=== PATIENT | male | born 1965 | race Caucasian/White ===

== ENCOUNTER 2021-08-12 23:41 | Emergency (ER) | payer SELFPAY ==
[2021-08-12 23:42] VITALS: BP 167/92; PULSE 62; RESP 18; TEMP 36.9; O2SAT 97; BMI 27.3
--- NOTE | 2021-08-13 00:37 | [facility].EDDENT ---
ED Disposition Clinical Impression: Dental caries, Infected dental caries, Pain, dental Disposition: Home, Self-Care Condition on Discharge: Good Instructions: DI for Dental Pain Additional Instructions: use meds and see dentist and pcp Prescriptions: cephALEXin [cephALEXin 500mg capsule*] 500 mg PO TID #30 cap Transmission Status: Pending to [facility] #[id number] Referrals: Provider,Referral, [Primary Care Provider] - - Critical Care Critical Care Time: No Attestation: On 08/12/21, the high probability of a clinically significant, sudden or life threatening deterioration of the following system(s) required my full and direct attention, intervention and personal management. The time I documented below is in addition to time spent performing reported procedures but includes the following listed in this critical care notation. Medical Decision Making - Medical Records Medical records reviewed: Yes: I reviewed the patient's medical records. - Kenneth Inquiry Pt receiving controlled substance: No Vital Signs: 08/12/21 23:42 Temperature 98.5 F Temperature Source Oral Pulse Rate [Right] 62 Respiratory Rate 18 Blood Pressure [Right Arm] 167/92 H Blood Pressure Mean [Right Arm] 117 02 Sat by Pulse Oximetry 97 Oxygen Delivery Method Room Air - Lab Data Lab results reviewed: Yes: I reviewed the patient's lab results. Medical Decision Narrative: has sig dental disease and infection will need abx and dental care Dental HPI - General Chief complaint: Dental/Oral Stated complaint: toothache Time Seen by Provider: 08/13/21 00:00 Mode of Arrival: Ambulatory Source of Information: Patient, Medical Record Limitations: No Limitations Description of Symptoms (Recalled from ER Triage Doc. by RN): pt has swelling in the right side of his face states that he has a few bad teeth. usually he can stop the pain with otc meds but this time its not stopping. - History of Present Illness HPI Narrative: dental caries and pain with rt max sinus pain Complaint: tooth pain Onset (ago): day(s) Severity: moderate Context: history of dental caries, poor dental care Associated symptoms: gum swelling Treatment prior to arrival: topical analgesic - Related Data Previous Rx's Medication Instructions Recorded cephALEXin [cephALEXin 500mg 500 mg PO TID #30 cap 08/13/21 capsule*] Allergies Allergy/AdvReac Type Severity Reaction Status Date / Time No Known Allergies Allergy Verified 11/30/20 12:14 [facility] History - Hepatitis A Screen Drug use history?: No High risk sexual behaviors?: No History of sexually transmitted infection?: No Currently employed?: No Childcare worker?: No Do you have indoor plumbing?: Yes Do you have electricity?: Yes Attestation statement:: This patient has been screened for Hepatitis A risk factors. I have reviewed the patient's past medical history: Yes Other Surgeries: Yes: No Previous Surgery Fractures: Yes (right arm as a teen) - Social History Smoking Status: Former smoker Alcohol Intake: never Alcohol Intake Frequency:: a few times a month Substance Use Type: denies use Occupational Status: employed Family Hx:: No significant family history ROS Obtained: Yes All systems reviewed & no additional complaints - Constitutional Constitutional: Denies fever(s) - Eyes Eyes: Denies change in vision - ENT Ears, Nose, Mouth, and Throat: Reports as per HPI, Reports dental pain, Reports facial pain, Denies sore throat - Cardiovascular Cardiovascular: Denies chest pain - Respiratory Respiratory: Denies cough - Gastrointestinal Gastrointestingal: Denies: abdominal pain - Genitourinary Male Genitourinary: Denies hematuria - Musculoskeletal Musculoskeletal: Denies joint pain, Denies joint swelling - Integumentary/Breasts Skin/Breast: Denies rash - Neurologic Neurologic: Denies seizure-like activity Physical Exam - General General ap
[2021-08-13 01:08] VITALS: BP 211/88; PULSE 72; RESP 16; TEMP 36.8; O2SAT 98
== END 2021-08-13 01:10 | disposition home or self-care (01) ==
PROVIDERS: Emergency Provider Emergency Medicine
DX: K02.9 Dental caries, unspecified (principal); Z87.891 Personal history of nicotine dependence
CPT/HCPCS: 99281

== ENCOUNTER 2025-08-02 16:20 | Emergency (ER) | payer SELFPAY ==
[2025-08-02] VITALS (8 sets, daily range): BP systolic 137–182; BP diastolic 90–103; PULSE 72–84; RESP 17–18; TEMP 36.7–37; O2SAT 95–97; BMI 33.4
--- NOTE | 2025-08-02 17:00 | ECG_ITS ---
APPROVED REPORT Exam: Resting ECG HR:70 bpm ECG Measurements Heart Rate 70 AXES AR 140 P 59 QRSd 86 QRS 62 QT 380 T 60 QTc 400 Conclusion SINUS RHYTHM NORMAL ECG Electronically signed by : BALAJI NEWMAN, 08/05/2025 14:13:07
--- NOTE | 2025-08-02 17:01 | ED_ITS ---
Discharge Plan Disposition Patient Disposition: Xfer Other Prescriptions Prescriptions: No Action cephalexin 500 MG capsule 500 mg PO TID Qty: 30 0RF Referrals Follow up/Referrals: Provider,Referral, MD [Primary Care Provider, Medical] - See instructions Clinical Impressions Clinical Impression: Abdominal pain, Abdominal mass, Serum total bilirubin elevated Instructions Patient Instructions: DI for Acute Abdominal Pain Print Language Print Language: Citizen Of [place] Discharge ED Provider: Ramon Mcclain General Adult HPI <TRICIA Caballero - Last Filed: 08/02/25 19:21> General Chief complaint: Abdominal Pain Stated complaint: Pain in Abd. that runs to chest & back Time Seen by Provider: 08/02/25 17:00 Mode of Arrival: Ambulatory Source of Information: Patient Limitations: No Limitations History of Present Illness HPI narrative: 60-year-old male presents to the emergency department accompanied by his significant other for lower abdominal pain no rating to his back at times, he also endorses occasional what sounds like belching at times, as well as abdominal distention, with occasional chest pain especially when lying down , that been waxing and waning episodes for the last month. Patient denies any fever chills cough congestion shortness of breath, no chest pain currently, no nausea no vomiting, does admit to episodes of constipation, last bowel movement was this morning, describes it is diarrhea , denies any urinary type symptomatology, denies any hematochezia hematemesis or hemoptysis, patient has no other real relevant past medical history takes no other medications daily at home, patient is a former smoker denies any alcohol or drug use initial triage vitals are unremarkable. Also of note, patient has data deficient/family history of what sounds like gastric cancer being his mother, and possible pancreatic cancer being on his aunt/grandmother side. Please note that above description of symptoms, in this electronic medical record under categorization of recalled from ER triage doctor by RN are reflective of an initial nursing assessment, however, is not reflective of my full history and physical exam that was personally taken and clarified. Consequentially, this preceding description of symptoms, which may include the patient's categorized chief complaint in the EMR, do not reflect my personal clinical impression, and the ultimate description of history of present illness and patient stated complaints should be deferred to this section of the note. Unless stated otherwise or congruent with this section of the note, additional signs, symptoms, or incongruence should be interpreted as inaccurate with my clinical impression. Onset (ago): month(s) Related Data Previous Rx's ?Medication ?Instructions ?Recorded cephalexin 500 mg capsule 500 mg PO TID #30 caps 08/13 Allergies Allergy/AdvReac Type Severity Reaction Status Date / Time No Known Allergies Allergy Verified 11/30/20 12:14 [facility] <TRICIA Caballero - Last Filed: 08/02/25 19:21> [facility] Disclaimer: The information contained in this section may have been updated after the patient was seen, as this information can be updated by other users. Social History Smoking Status: Never smoker alcohol intake: never substance use type: denies use current occupational status: employed Travel in the last 8 weeks?: Inside the [place] Have you lived/traveled outside US in past 30 days?: No Contact w/someone who lives/traveled outside US past 30 days?: No Exposure to someone with infectious disease in past 14 days?: No Do you have a fever (greater than 100.4 F or 38 C)?: No Have you tested positive for COVID-19?: No Exposed to someone with COVID-19 in past 14 days?: No Do you have a sore throat?: No Do you have a cough?: No Do you have any weakness?: No Do you have any diarrhea?: No Are you experiencing any unusual bleeding?: No Do you have any muscle aches/pain?: No Do you have any abdominal pain?: No Are you experiencing loss of taste or smell?: No Other Medical History Have you received the Flu Vaccine for this season: No Have you received the Pneumonia Vaccine: No <TRICIA Caballero - Last Filed: 08/02/25 19:21> ROS Obtained: Yes All systems reviewed & no additional complaints except as documented Physical Exam <TRICIA Caballero - Last Filed: 08/02/25 19:21> General General appearance: alert and in no apparent distress Head Head exam: atraumatic and normocephalic Eye Eye exam: Present PERRL and EOMI; Absent scleral icterus ENT ENT exam: Present mucous membranes moist Neck Neck exam: Present normal inspection Chest Chest inspection: Present normal inspection and symmetric chest wall rise Respiratory Respiratory exam: Present normal lung sounds bilaterally; Absent respiratory distress, wheezes or stridor Cardiovascular Cardiovascular exam: Present regular rate and normal rhythm Abdominal Exam Abdominal exam: Present soft, distention, tenderness and hernia; Absent guarding, rebound, Billings's sign or tenderness at McBurney's Point Abdominal tenderness: Present LLQ Comment: Minimal abdominal tenderness to the LLQ,/midepigastric region, there is some abdominal distention, obvious umbilical hernia that is reducible Extremities Exam Extremities exam: Present normal inspection Back Exam Back exam: Absent CVA tenderness (R) or CVA tenderness (L) Neurological Exam Neurological exam: Present alert and oriented X3 Psychiatric Psychiatric exam: Present normal affect Skin Skin exam: Present warm, dry and other (Some yellowing of the skin throughout, no true jaundice at this time) Medical Decision Making <TRICIA Caballero - Last Filed: 08/02/25 19:21> Medical Records Medical records reviewed: Yes I reviewed the patient's medical records. Screening: Per USPSTF and CDC recommendations, given the prevalence of disease in our region, it is our hospital?s policy to screen for HIV and viral Hepatitis for all patients aged 18 and over and those with ongoing risk factors. Kenneth Inquiry Pt receiving controlled substance: Yes Kenneth was queried for this patient: No Reason not queried -: Emergent pt cond-no time Risks and benefits of using a controlled substance: were discussed with pt by me Vital Signs: 08/02/25 16:21 08/02/25 17:30 08/02/25 19:18 Temperature 98.1 F Temperature Source Oral Pulse Rate 75 75 Pulse Rate [Left Radial] 72 Respiratory Rate 17 18 Blood Pressure 148/90 H 171/97 H Blood Pressure [Right Arm] 158/99 H Blood Pressure Mean [Right Arm] 118 Blood Pressure Source [Right Arm] Automatic Cuff Blood Pressure Position [Right Arm] Sitting 02 Sat by Pulse Oximetry 97 95 97 Oxygen Delivery Method Room Air Room Air Room Air Lab Data Lab results reviewed: Yes I reviewed the patient's lab results. Lab Results 08/02/25 17:10: WBC 10.6, RBC 5.50, Hgb 17.3, Hct 49.7, MCV 90.4, MCH 31.5 H, MCHC 34.8, RDW 12.7, Plt Count 230, MPV 10.7 H, Neut % (Auto) 57.7, Lymph % (Auto) 30.7, [place] % (Auto) 9.5 H, Eos % (Auto) 1.0, Baso % (Auto) 0.8, Neut # (Auto) 6.1, Lymph # (Auto) 3.3, [place] # (Auto) 1.0, Eos # (Auto) 0.1, Baso # (Auto) 0.1, PT 11.9, INR 1.08, Sodium 137, Potassium 4.7, Chloride 101, Carbon Dioxide 27, Anion Gap 13.7, BUN 11, Creatinine 1.10, Estimated GFR 68, Est GFR ( Amer) 82, Glucose 106 H, Lactate 1.1, Calcium 9.3, Magnesium 2.1, Total Bilirubin 6.9 H, AST 253 H, ALT 208 H, Alkaline Phosphatase 128 H, Troponin I < 0.01, NT-Pro-B Natriuret Pep < 20.0, Total Protein 7.8, Albumin 3.8, Globulin 4.0 H, Albumin/Globulin Ratio 1.0 L, Lipase 101, HCV Ab JEAN w/Rflx PCR Qn Negative, HIV Ag/Ab Combo Qual Negative 08/02/25 18:58: Urine Color Yellow, Urine Appearance Clear, Urine pH 5.5, Ur Specific [place] 1.010, Urine Protein Negative, Urine Glucose (UA) Negative, Urine Ketones Negative, Urine Blood Trace-i, Urine Nitrate Negative, Urine Bilirubin 3+ A, Urine Urobilinogen 1.0, Ur Leukocyte Esterase Negative, Urine RBC 5-10, Urine WBC 10-20, Ur Squamous Epith Cells 10-20, Urine Bacteria 1+ 08/02/25 17:10 08/02/25 17:10 Orders (Tests/Meds): ED MEDICATIONS Generic Name Dose Route Start Last Admin Trade Name Freq PRN Reason Stop Dose Admin Sodium Chloride 10 ml 08/02/25 17:57 08/02/25 17:58 Sodium Chloride 0.9% 10ml Syr (Rad Only) IV 09/01/25 17:56 10 ml NEEDED PRN Administration Maintain IV Site Discontinued Medications Generic Name Dose Route Start Last Admin Trade Name Freq PRN Reason Stop Dose Admin Belladonna Alkaloids 60 ml 08/02/25 17:07 08/02/25 17:18 Belladonna Alkaloids 60 Ml Ml PO 08/02/25 17:08 60 ml ONCE ONE Administration Iopamidol 75 ml 08/02/25 17:57 08/02/25 17:58 Iopamidol-370 (76%);100ml Bottle IV 08/02/25 17:58 75 ml ONCE ONE Administration Morphine Sulfate 2 mg 08/02/25 17:07 08/02/25 17:18 Morphine 2mg/Ml Syringe IV 08/02/25 17:08 2 mg ONCE ONE Administration Ondansetron HCl 4 mg 08/02/25 17:07 08/02/25 17:18 Ondansetron 4mg/2ml Vial IV 08/02/25 17:08 4 mg ONCE ONE Administration ORDERS Category Date Time Status CT abdomen pelvis w con Stat Cat Scan 08/02/25 17:[address] chest wo con Stat Cat Scan 08/02/25 18:24 Completed Complete Blood Count Auto Diff Stat Lab 08/02/25 17:10 Completed Comprehensive Metabolic Panel Stat Lab 08/02/25 17:10 Completed HIV Combo Stat Lab 08/02/25 17:10 Completed Hepatitis C Ab Qual. W/ RFX Stat Lab 08/02/25 17:10 Completed Lactic Acid Stat Lab 08/02/25 17:10 Completed Lipase Stat Lab 08/02/25 17:10 Completed Magnesium Stat Lab 08/02/25 17:10 Completed NT Pro Brain Natriuretic Pep. Stat Lab 08/02/25 17:10 Completed PT INR [Prothrombin Time INR] Stat Lab 08/02/25 17:10 Completed Troponin I Q3H Lab 08/02/25 20:15 Ordered Troponin I Q3H Lab 08/02/25 23:15 Ordered Troponin I Stat Lab 08/02/25 17:10 Completed Urinalysis and Microscopic Stat Lab 08/02/25 18:58 Completed Urine Culture Stat Micro 08/02/25 18:58 Received Medical Decision Narrative: 60-year-old male presents emergency department with abdominal pain nausea and occasional chest pain that wax and wane for 1 month, differential diagnose include but not limited to, cholelithiasis, cholecystitis, hernia, bowel obstruction, volvulus, malignancy, diverticulitis, pancreatitis, constipation, gastroenteritis, pneumonia, costochondritis, panic attack, gastritis, GERD, among others. Will obtain basic laboratory studies, EKG, lactic acid, lipase level magnesium level proBNP PT/INR, troponin, urinalysis, CT ab pelvis with contrast, will be obtained for further evaluation/characterization, will give GI cocktail, 2 mg IV morphine and 4 mg IV Zofran for pain and nausea. CMP is notable for no lactic acidosis, transaminitis with an AST of 253 and an ALT of 208, unsure of chronicity, lipase within normal limits. CBC unremarkable PT/INR within normal limit Total bilirubin is elevated at 6.9 Initial troponin is less than 0.01 proBNP is less than 20 I reviewed the patient's CT head and pelvis with contrast along the corresponding radiologic report, also had interactive discussion with Dr. Arteaga at approximately 6:24 PM, extensive portal. Pancreatic and retroperitoneal lymphadenopathy with lymph nodes distort the pancreatic head but no definitive pancreatic mass identified there is focal thickening of the fundus of the gallbladder which is masslike could represent a gallbladder neoplasm, multiple hypodensities are seen scattered throughout the liver the largest seen inferiorly in the right lobe measuring 2.1 cm these are worrisome for metastatic disease consider MRI or PET/CT for further characterization. Also noted a 6 mm pulmonary nodule seen in right lower lobe, and a 3 mm nodule seen in the left lung base, consider CT chest without contrast for further evaluation remainder the lungs. I discussed the results with the patient and family at bedside, I recommended transfer/evaluation by [facility], will call [facility] for potential transfer/evaluation of the patient's masslike structures in his abdomen. I reviewed the patient's CT chest without contrast along the corresponding radiologic report, multiple pulmonary injuries measuring up to 5 mm and possible metastatic disease, left lower lobe granuloma and small mediastinal calcified lymph node consistent with prior granulomatous disease. I discussed this patient's case with transfer physician at approximately 7:14 PM, unfortunately [facility] is on diversion right now, patient will be placed on a wait list for gallbladder versus pancreatic head neoplasm with biliary obstruction. I discussed this patient case with attending physician at shift change, he will be assuming amended the patient's care/workup, disposition is pending bed availability at [facility] for transfer. However, will also reach out to [facility] for potential transfer/to assess bed availability. <Ramon Mcclain MD - Last Filed: 08/02/25 19:40> Vital Signs: 08/02/25 16:21 08/02/25 17:30 08/02/25 19:18 Temperature 98.1 F Temperature Source Oral Pulse Rate 75 75 Pulse Rate [Left Radial] 72 Respiratory Rate 17 18 Blood Pressure 148/90 H 171/97 H Blood Pressure [Right Arm] 158/99 H Blood Pressure Mean [Right Arm] 118 Blood Pressure Source [Right Arm] Automatic Cuff Blood Pressure Position [Right Arm] Sitting 02 Sat by Pulse Oximetry 97 95 97 Oxygen Delivery Method Room Air Room Air Room Air Lab Data Lab Results 08/02/25 17:10: WBC 10.6, RBC 5.50, Hgb 17.3, Hct 49.7, MCV 90.4, MCH 31.5 H, MCHC 34.8, RDW 12.7, Plt Count 230, MPV 10.7 H, Neut % (Auto) 57.7, Lymph % (Auto) 30.7, [place] % (Auto) 9.5 H, Eos % (Auto) 1.0, Baso % (Auto) 0.8, Neut # (Auto) 6.1, Lymph # (Auto) 3.3, [place] # (Auto) 1.0, Eos # (Auto) 0.1, Baso # (Auto) 0.1, PT 11.9, INR 1.08, Sodium 137, Potassium 4.7, Chloride 101, Carbon Dioxide 27, Anion Gap 13.7, BUN 11, Creatinine 1.10, Estimated GFR 68, Est GFR ( Amer) 82, Glucose 106 H, Lactate 1.1, Calcium 9.3, Magnesium 2.1, Total Bilirubin 6.9 H, AST 253 H, ALT 208 H, Alkaline Phosphatase 128 H, Troponin I < 0.01, NT-Pro-B Natriuret Pep < 20.0, Total Protein 7.8, Albumin 3.8, Globulin 4.0 H, Albumin/Globulin Ratio 1.0 L, Lipase 101, HCV Ab JEAN w/Rflx PCR Qn Negative, HIV Ag/Ab Combo Qual Negative 08/02/25 18:58: Urine Color Yellow, Urine Appearance Clear, Urine pH 5.5, Ur Specific [place] 1.010, Urine Protein Negative, Urine Glucose (UA) Negative, Urine Ketones Negative, Urine Blood Trace-i, Urine Nitrate Negative, Urine Bilirubin 3+ A, Urine Urobilinogen 1.0, Ur Leukocyte Esterase Negative, Urine RBC 5-10, Urine WBC 10-20, Ur Squamous Epith Cells 10-20, Urine Bacteria 1+ Orders (Tests/Meds): ED MEDICATIONS Generic Name Dose Route Start Last Admin Trade Name Freq PRN Reason Stop Dose Admin Sodium Chloride 10 ml 08/02/25 17:57 08/02/25 17:58 Sodium Chloride 0.9% 10ml Syr (Rad Only) IV 09/01/25 17:56 10 ml NEEDED PRN Administration Maintain IV Site Discontinued Medications Generic Name Dose Route Start Last Admin Trade Name Freq PRN Reason Stop Dose Admin Belladonna Alkaloids 60 ml 08/02/25 17:07 08/02/25 17:18 Belladonna Alkaloids 60 Ml Ml PO 08/02/25 17:08 60 ml ONCE ONE Administration Iopamidol 75 ml 08/02/25 17:57 08/02/25 17:58 Iopamidol-370 (76%);100ml Bottle IV 08/02/25 17:58 75 ml ONCE ONE Administration Morphine Sulfate 2 mg 08/02/25 17:07 08/02/25 17:18 Morphine 2mg/Ml Syringe IV 08/02/25 17:08 2 mg ONCE ONE Administration Ondansetron HCl 4 mg 08/02/25 17:07 08/02/25 17:18 Ondansetron 4mg/2ml Vial IV 08/02/25 17:08 4 mg ONCE ONE Administration ORDERS Category Date Time Status CT abdomen pelvis w con Stat Cat Scan 08/02/25 17:[address] chest wo con Stat Cat Scan 08/02/25 18:24 Completed Complete Blood Count Auto Diff Stat Lab 08/02/25 17:10 Completed Comprehensive Metabolic Panel Stat Lab 08/02/25 17:10 Completed HIV Combo Stat Lab 08/02/25 17:10 Completed Hepatitis C Ab Qual. W/ RFX Stat Lab 08/02/25 17:10 Completed Lactic Acid Stat Lab 08/02/25 17:10 Completed Lipase Stat Lab 08/02/25 17:10 Completed Magnesium Stat Lab 08/02/25 17:10 Completed NT Pro Brain Natriuretic Pep. Stat Lab 08/02/25 17:10 Completed PT INR [Prothrombin Time INR] Stat Lab 08/02/25 17:10 Completed Troponin I Q3H Lab 08/02/25 20:15 Ordered Troponin I Q3H Lab 08/02/25 23:15 Ordered Troponin I Stat Lab 08/02/25 17:10 Completed Urinalysis and Microscopic Stat Lab 08/02/25 18:58 Completed Urine Culture Stat Micro 08/02/25 18:58 Received ECG Data Tracing #1: I reviewed this ECG and interpreted as documented below: Normal sinus rhythm. No ST elevation or depression. QTc normal at 400 Medical Decision Narrative: 60-year-old male presents emergency department with abdominal pain nausea and occasional chest pain that wax and wane for 1 month, differential diagnose include but not limited to, cholelithiasis, cholecystitis, hernia, bowel obstruction, volvulus, malignancy, diverticulitis, pancreatitis, constipation, gastroenteritis, pneumonia, costochondritis, panic attack, gastritis, GERD, among others. Will obtain basic laboratory studies, EKG, lactic acid, lipase level magnesium level proBNP PT/INR, troponin, urinalysis, CT ab pelvis with contrast, will be obtained for further evaluation/characterization, will give GI cocktail, 2 mg IV morphine and 4 mg IV Zofran for pain and nausea. CMP is notable for no lactic acidosis, transaminitis with an AST of 253 and an ALT of 208, unsure of chronicity, lipase within normal limits. CBC unremarkable PT/INR within normal limit Total bilirubin is elevated at 6.9 Initial troponin is less than 0.01 proBNP is less than 20 I reviewed the patient's CT head and pelvis with contrast along the corresponding radiologic report, also had interactive discussion with Dr. Arteaga at approximately 6:24 PM, extensive portal. Pancreatic and retroperitoneal lymphadenopathy with lymph nodes distort the pancreatic head but no definitive pancreatic mass identified there is focal thickening of the fundus of the gallbladder which is masslike could represent a gallbladder neoplasm, multiple hypodensities are seen scattered throughout the liver the largest seen inferiorly in the right lobe measuring 2.1 cm these are worrisome for metastatic disease consider MRI or PET/CT for further characterization. Also noted a 6 mm pulmonary nodule seen in right lower lobe, and a 3 mm nodule seen in the left lung base, consider CT chest without contrast for further evaluation remainder the lungs. I discussed the results with the patient and family at bedside, I recommended transfer/evaluation by [facility], will call [facility] for potential transfer/evaluation of the patient's masslike structures in his abdomen. I reviewed the patient's CT chest without contrast along the corresponding radiologic report, multiple pulmonary injuries measuring up to 5 mm and possible metastatic disease, left lower lobe granuloma and small mediastinal calcified lymph node consistent with prior granulomatous disease. I discussed this patient's case with [facility] transfer physician at approximately 7:14 PM, unfortunately [facility] is on diversion right now, patient will be placed on a wait list for gallbladder versus pancreatic head neoplasm with biliary obstruction. I discussed this patient case with attending physician at shift change, he will be assuming amended the patient's care/workup, disposition is pending bed availability at [facility] for transfer. However, will also reach out to [facility] for potential transfer/to assess bed availability. Ramon Mcclain MD: I was consulted by the OUSMANE, and we discussed the complexity of the problems being addressed. I approve the treatment and management plan for this patient's care in the emergency department, thus performing a substantive portion of the medical decision making. I discussed patient's case with Dr. Martin with [facility] who accepted the patient for further management. Will arrange for transport and they will call back with bed number. Critical Care <TRICIA Caballero - Last Filed: 08/02/25 19:21> Critical Care Time Critical Care Time: No
--- NOTE | 2025-08-02 17:06 | CT_ITS ---
PROCEDURE INFORMATION: Exam: CT Abdomen And Pelvis With Contrast Exam date and time: 08/02/2025 5:55 PM Age: 60 years old Clinical indication: Abdominal pain; Generalized; Additional info: Lower abdominal pain TECHNIQUE: Imaging protocol: Computed tomography of the abdomen and pelvis with contrast. Radiation optimization: All CT scans at this facility use at least one of these dose optimization techniques: automated exposure control; mA and/or kV adjustment per patient size (includes targeted exams where dose is matched to clinical indication); or iterative reconstruction. Contrast material: ISOVUE; Contrast volume: 75 ml; Contrast route: IV; COMPARISON: No relevant prior studies available. FINDINGS: Lungs: Granuloma is seen in the left lung base. Liver: The liver is low in density. Multiple hypodensities are seen scattered throughout the liver the largest seen inferiorly in the right lobe measuring 2.1 cm. Gallbladder and biliary ducts: A gallstone is present in the gallbladder. There is focal thickening of the cap of the gallbladder. There is prominence of the common bile duct which measures 12 mm. Pancreas: No pancreatic ductal dilatation is noted. Spleen: Normal. No splenomegaly. Adrenal glands: Normal. No mass. Kidneys and ureters: Normal. No hydronephrosis. Stomach and bowel: Unremarkable. No obstruction. No mucosal thickening. Appendix: No evidence of appendicitis. Intraperitoneal space: Unremarkable. No free air. No significant fluid collection. Vasculature: Unremarkable. No abdominal aortic aneurysm. Lymph nodes: Prominent lymph nodes are seen in the barrington hepatis these measure up to 4.5 cm in diameter. Additional adenopathy is seen in the upper retroperitoneum in the aortocaval space, adjacent to the right adrenal gland. Urinary bladder: Unremarkable as visualized. Reproductive: Unremarkable as visualized. Bones/joints: Unremarkable. No acute fracture. Soft tissues: Unremarkable. IMPRESSION: 1. Extensive portal, peripancreatic, and retroperitoneal lymphadenopathy. The lymph nodes distort the pancreatic head but no definite pancreatic mass is identified. 2. There is focal thickening of the fundus of the gallbladder which is masslike and could represent a gallbladder neoplasm. 3. Multiple hypodensities are seen scattered throughout the liver the largest seen inferiorly in the right lobe measuring 2.1 cm, these are worrisome for metastatic disease, consider MRI or PET-CT for further characterization.
[2025-08-02] MEDS: ONDANSETRON 4MG/2ML VIAL 4 MG IV (17:18)
[2025-08-02] MEDS: BELLADONNA ALKALOIDS 60 ML ML PO (17:18)
[2025-08-02] MEDS: MORPHINE 2MG/ML SYRINGE 2 MG IV (17:18)
[2025-08-02 17:31] LABS: Albumin Level 3.8 g/dl (3.5-5.0); Chloride 101 mmol/L (98-107); Potassium 4.7 mmoL/L (3.5-5.1); Sodium 137 mmol/L (136-145)
[2025-08-02 17:33] LABS: Hematocrit 49.7 % (42.0-52.0); Hemoglobin 17.3 g/dL (14.1-18.0); Immature Granulocytes % 0.3 %; Mean Corpuscular HGB Conc 34.8 g/dL (31.8-35.4); Mean Corpuscular Hemoglobin 31.5 pg (27.0-31.2); Mean Corpuscular Volume 90.4 fl (80-94); Nucleated Red Blood Cells % 0 %; Platelet Count 230 K/mm3 (142-424); Red Blood Count 5.50 M/mm3 (4.60-6.20); Red Cell Distribution Width-SD 41.7 fL; White Blood Count 10.6 K/mm3 (4.8-10.8)
[2025-08-02 17:34] LABS: Alanine Aminotransferase 208 U/L (12-78); Albumin/Globulin Ratio 1.0 (1.1-1.8); Alkaline Phosphatase 128 U/L (38-126); Anion Gap 13.7 mEq/L (5-15); Aspartate Amino Transferase 253 U/L (17-59); Bilirubin,Total 6.9 mg/dl (0.2-1.3); Blood Urea Nitrogen 11 mg/dl (9-20); Calcium 9.3 mg/dl (8.4-10.2); Carbon Dioxide 27 mmol/L (22.0-30.0); Creatinine,Serum 1.10 mg/dl (0.66-1.25); Estimated Glomerular Filt Rate 68 ml/min (>60); GFR (African American) 82 ML/MIN (>60); Globulin 4.0 g/dL (1.3-3.2); Glucose 106 mg/dl (74-100); Lipase 101 U/L (23-300); Magnesium 2.1 mg/dl (1.6-2.3); Total Protein,Serum 7.8 g/dl (6.3-8.2)
[2025-08-02 17:39] LABS: INR 1.08 (0.9-1.1); Prothrombin Time 11.9 seconds (10.1-12.5)
[2025-08-02 17:44] LABS: NT Pro Brain Natriuretic Pep. < 20.0 pg/mL (0-125)
[2025-08-02 17:54] LABS: Troponin I < 0.01 ng/ml (0.00-0.034)
[2025-08-02] MEDS: SODIUM CHLORIDE 0.9% 10ML SYR (RAD ONLY) 10 ML IV (17:58)
[2025-08-02] MEDS: IOPAMIDOL-370 (76%);100ML BOTTLE 75 ML IV (17:58)
--- NOTE | 2025-08-02 18:24 | CT_ITS ---
PROCEDURE INFORMATION: Exam: CT Chest Without Contrast; Diagnostic Exam date and time: 08/02/2025 6:31 PM Age: 60 years old Clinical indication: Other: Evaluation pulmonary nodules noted on CT abdomen TECHNIQUE: Imaging protocol: Diagnostic computed tomography of the chest without contrast. Radiation optimization: All CT scans at this facility use at least one of these dose optimization techniques: automated exposure control; mA and/or kV adjustment per patient size (includes targeted exams where dose is matched to clinical indication); or iterative reconstruction. COMPARISON: CT ABDOMEN PELVIS W CON 08/02/2025 5:55 PM FINDINGS: Lungs: Upper lobe predominant centrilobular emphysema. Multiple pulmonary nodules are identified, 5 mm nodule in the right mid chest, series 4, image 38. 5 mm nodule in the left posterior sulcus, series 4, image 55. A granuloma is noted in the left mid chest. Pleural spaces: Unremarkable. No pneumothorax. No pleural effusion. Heart: No coronary calcium. No cardiomegaly. No pericardial effusion. Lymph nodes: No significant mediastinal or hilar mass or adenopathy. Calcified lymph nodes are seen in the left hilum and in the subcarinal area consistent with old granulomatous disease. Multiple liver lesions and upper retroperitoneal mass and lymphadenopathy present. Vasculature: Unremarkable. No aortic aneurysm. Bones/joints: Unremarkable. No acute fracture. Soft tissues: Unremarkable. IMPRESSION: 1. Multiple pulmonary nodules measuring up to 5 mm 2. Possible metastatic disease. 3. Left lower lobe granuloma and small mediastinal calcified lymph nodes consistent with prior granulomatous disease. COMMENTS: The presence of pulmonary emphysema on CT is an independent risk factor for lung cancer. In the absence of a history or active diagnosis of lung cancer, it is recommended that this patient with emphysema be evaluated for enrollment in a low dose CT lung cancer screening program.
--- NOTE | 2025-08-02 18:47 | PC.NURSE ---
calling [facility] at this time.
[2025-08-02 19:05] LABS: Microscopic, Urine URINE MICROSCOPIC (MICROSCOPIC)
[2025-08-02 19:07] LABS: Hepatitis C Ab Qual. W/ RFX NEGATIVE (Negative)
[2025-08-02 19:10] LABS: Color,Urine YELLOW (Yellow); Glucose,Urine (UA) Negative (Negative); Ketones,Urine Negative (Negative); Leukocyte Esterase,Urine Negative (Negative); PH,Urine 5.5 (5.0-8.5); Protein,Urine Negative (Negative); Specific Gravity, Urine 1.010 (1.005-1.030); Urobilinogen,Urine 1.0 EU/dl (0.2)
[2025-08-02 19:12] LABS: Bilirubin,Urine 3+ (Negative)
--- NOTE | 2025-08-02 19:22 | PC.NURSE ---
Spoke with [facility], awaiting a call back at this time
[2025-08-02 19:23] LABS: Bacteria,Urine 1+ /lpf
--- NOTE | 2025-08-02 20:48 | PC.NURSE ---
Spoke with [facility] to follow up with the bed assignment. Iris from [facility] said she will be calling us back with a bed in a few minutes
[2025-08-02 21:12] LABS: Troponin I < 0.01 ng/ml (0.00-0.034)
== END 2025-08-02 21:19 | disposition other institution (70) ==
PROVIDERS: Physician Assistant; Emergency Provider Student in an Organized Health Care Education/Training Program
DX: R10.84 Generalized abdominal pain (principal); R19.00 Intra-abdominal and pelvic swelling, mass and lump, unspecified site; R91.8 Other nonspecific abnormal finding of lung field; R17 Unspecified jaundice
CPT/HCPCS: 71250; 74177; 80053; 81001; 83605; 83690; 83735; 83880; 84484; 85025; 85610; 86803; 87086; 87389; 93005; 96374; 96375; 99285; J2270; J2405; Q9967